=== PATIENT | male | born 1950 | race African-American/Black ===

== ENCOUNTER 2019-03-22 11:17 | Emergency (ER) | payer MEDICARE, OTHER ==
[~2019-03-22] VITALS: Ht 180.3 cm; Wt 74.8 kg
[2019-03-22 12:09] LABS: Urine WBC None Seen /hpf (0 - 3)
[2019-03-22] MEDS ORDERED: KETOROLAC TROMETH 30 MG/ML 1ML VIAL IM ONE (12:15)
[2019-03-22 12:36] LABS: Urine Bacteria NONE SEEN /hpf (None Seen); Urine Blood Negative /uL (Negative); Urine Specific Gravity 1.003 (1.001-1.035)
[2019-03-22 13:54] VITALS: BP 168/93
== END 2019-03-22 15:03 | disposition home or self-care (01) ==
LOC: EDBD 11:17 → ER 11:20
DX: N20.0 Calculus of kidney (principal); M54.9 Dorsalgia, unspecified; G89.29 Other chronic pain; I10 Essential (primary) hypertension; F17.210 Nicotine dependence, cigarettes, uncomplicated
CPT/HCPCS: 74176; 81001; 93005; 96372; 99284; J1885